=== PATIENT | female | born 1990 | race Caucasian/White ===

== ENCOUNTER 2021-01-09 05:36 | Outpatient (RCR) | payer MEDICAID ==
[~2021-01-09] VITALS: Ht 162.6 cm; Wt 70.5 kg
[~2021-01-09 05:36] MED LIST: ALPR0.2550 PO; AMIT25TA9 PO; CA C PO; CEPH-38 PO; HYDR1TAB66 PO; MELO-195 PO; OXYC-12 PO; RNT150T PO; TOPI50TA2 PO
[2021-01-09] MEDS ORDERED: PANT40TA2 PO ×2 (11:17)
[2021-01-09] MEDS ORDERED: PNV1TABL9 PO ×2 (11:17)
[2021-01-09] MEDS ORDERED: METF-478 PO ×2 (11:17)
[2021-01-09] MEDS ORDERED: ALPR0.5T7 PO ×2 (11:17)
[2021-01-09] MEDS ORDERED: TIZA4CAP8 PO ×2 (11:17)
[2021-01-09] MEDS ORDERED: LEVO50CA4 PO ×2 (11:17)
[2021-01-09] MEDS ORDERED: TPR25T PO ×2 (11:17)
[2021-01-09] MEDS ORDERED: NF-VITD400 PO ×2 (11:17)
[2021-01-09] MEDS ORDERED: BUPR300T43 PO ×2 (11:17)
[2021-01-09] MEDS ORDERED: VALE100C PO ×2 (11:17)
[2021-01-09] MEDS ORDERED: DEXT10TA9 PO ×2 (11:17)
[2021-01-09] MEDS ORDERED: CETI10TA49 PO ×2 (11:17)
== END 2021-01-14 10:54 | disposition home or self-care (01) ==
LOC: PREOP 05:36
PROVIDERS: ATTEND Otolaryngology Otolaryngology/Facial Plastic Surgery
DX: Z01.818 Encounter for other preprocedural examination (principal)

== ENCOUNTER 2021-01-16 06:27 | Day surgery (SDC) | payer MEDICAID ==
[2021-01-16] VITALS (10 sets, daily range): BP systolic 101–126; BP diastolic 64–86
[~2021-01-16] VITALS: Ht 162 cm; Wt 70.5 kg
[~2021-01-16 06:27] MED LIST changes: +ALPR0.5T7 PO; +BUPR300T43 PO; +CETI10TA49 PO; +DEXT10TA9 PO; +LEVO50CA4 PO; +METF-478 PO; +NF-VITD400 PO; +PANT40TA2 PO; +PNV1TABL9 PO; +TIZA4CAP8 PO; +TPR25T PO; +VALE100C PO
[2021-01-16] MEDS ORDERED: proPOfol 200 MG/20 ML (DIPRIVAN) VIAL IV ONE (06:45)
[2021-01-16] MEDS ORDERED: LIDOCAINE PF 2% 5 ML (XYLOCAINE) VIAL ONE (06:45)
[2021-01-16] MEDS ORDERED: SEVOFLURANE (ULTANE) 15 ML INHAL SOLN ONE ×3 (06:45→07:55)
[2021-01-16] MEDS ORDERED: fentaNYL INJECTION 100 MCG/2 ML AMP ONE (06:46)
[2021-01-16] MEDS ORDERED: MIDAZOLAM 2 MG/2 ML (VERSED) VIAL ONE (06:48)
[2021-01-16] MEDS: LACTATED RINGERS 1,000 ML IV PRN ×2 (07:04→09:30)
[2021-01-16] MEDS ORDERED: ONDANSETRON 4 MG/2 ML (SDV) Z0FRAN ONE (07:28)
--- NOTE | 2021-01-16 07:34 | Progress Note-Pre Operative ---
Pre-Operative Progress Note H&P Reviewed The H&P was reviewed, patient examined and no changes noted. Date Seen by Provider: Jan 16, 2021 Time Seen by Provider: 06:45 Date H&P Reviewed: Jan 16, 2021 Time H&P Reviewed: 06:45 Pre-Operative Diagnosis: Rec Tons/ Tpnsillar Hypertrophy DARIUS HAHN MD Jan 16, 2021 07:34
[2021-01-16] MEDS ORDERED: ROCURONIUM 10 MG/ML 5 ML SYRINGE IV ONE (07:54)
--- NOTE | 2021-01-16 08:07 | Progress Note-Post Operative ---
Post-Operative Progess Note Surgeon (s)/Satellite Manager (s) Surgeon DARIUS HAHN MD Satellite Manager n/a Pre-Operative Diagnosis Rec Tons/ Tpnsillar Hypertrophy Post-Operative Diagnosis same Post-Op Procedure Note Date of Procedure: Jan 16, 2021 Name of Procedure Performed: Tonsillectomy Description & Findings Description and Findings: n/a Anesthesia Type get Estimated Blood Loss minimal Packing none. Specimen(s) collected/removed tonsils sent separately to pathology for review DARIUS HAHN MD Jan 16, 2021 08:07
[2021-01-16] MEDS ORDERED: NS IV 1000 ML 1,000 ML IV SCH (08:15)
[2021-01-16] MEDS ORDERED: MEPERIDINE (DEMEROL) INJ 50 MG/ML IVP ONE (08:15)
[2021-01-16] MEDS ORDERED: ONDANSETRON 4 MG/2 ML (SDV) Z0FRAN IVP PRN (08:15)
[2021-01-16] MEDS ORDERED: fentaNYL INJECTION 100 MCG/2 ML AMP IVP ONE (08:15)
[2021-01-16] MEDS ORDERED: APAP 325 MG/10.15 ML LIQ (TYLENOL) UDC PO PRN (08:15)
[2021-01-16] MEDS ORDERED: morphine INJ 10 MG/ML 1ML (SYR OR VIAL) IVP ONE (08:15)
[2021-01-16] MEDS ORDERED: HYDROcodone/APAP 7.5MG-325 MG/15 ML (LORTAB) UDC PO PRN (08:15)
--- NOTE | 2021-01-16 08:15 | Anesthesia-General Post-Op ---
General Patient Condition Mental Status/LOC: Same as Preop Cardiovascular: Satisfactory Nausea/Vomiting: Absent Respiratory: Satisfactory Pain: Controlled Complications: Absent Post Op Complications Complications None Follow Up Care/Instructions Patient Instructions None needed. Anesthesia/Patient Condition Patient Condition Patient is doing well, no complaints, stable vital signs, no apparent adverse anesthesia problems. No complications reported per nursing. RIKA SANTANA CRNA Jan 16, 2021 08:15
[2021-01-16] MEDS ORDERED: AMOX250S5 PO ×2 (08:29)
[2021-01-16] MEDS ORDERED: TETRACAINESUCKERS MT ×2 (08:29)
[2021-01-16] MEDS ORDERED: DEXAINTSOL PO ×2 (08:29)
[2021-01-16] MEDS ORDERED: HYDR118S10 PO ×2 (08:31)
== END 2021-01-16 11:05 | disposition home or self-care (01) ==
LOC: SDC 06:27
PROVIDERS: ATTEND Otolaryngology Otolaryngology/Facial Plastic Surgery
DX: J35.01 Chronic tonsillitis (principal); F41.9 Anxiety disorder, unspecified; F32.9 Major depressive disorder, single episode, unspecified; K21.9 Gastro-esophageal reflux disease without esophagitis; F90.9 Attention-deficit hyperactivity disorder, unspecified type; Z79.899 Other long term (current) drug therapy; Z91.018 Allergy to other foods; Z91.013 Allergy to seafood
CPT/HCPCS: 84703; 87081